=== PATIENT | female | born 1995 | race Caucasian/White ===

== ENCOUNTER 2016-11-19 00:56 | Emergency (ER) | payer BC ==
[~2016-11-19] VITALS: Ht 172.7 cm; Wt 59.0 kg
[~2016-11-19 00:56] MED LIST: NKM
--- NOTE | 2016-11-19 01:58 | Emergency Room Report ---
History of Present Illness General Chief Complaint: Alcohol Intoxication Source: Friend, EMS Present Illness HPI This is a 21-year-old female brought in by EMS for alcohol intoxication. She was at a democr[employer] O. said by one of the sorority at [facility]. She was drinking heavily tonight. She was vomiting and acting aggressively. She then became hard to arouse. EMS called. There is no trauma. Unable to get history from patient because of her intoxication. 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 Allergies: Coded Allergies: No Known Allergies (Unverified , 11/19/16) Patient History Past Medical History: none Past Surgical History: none Pertinent Family History: none Social History: Reports: alcohol use Last Menstrual Period: unk Now: No Immunizations: other Reviewed Nursing Documentation: PMH: Agreed, PSxH: Agreed Nursing Documentation-PMH Past Medical History: No Stated History Review of Systems Eye: Denies: blurred vision, eye pain ENT: Denies: ear pain, nose congestion, throat swelling Respiratory: Denies: cough, shortness of breath Cardiovascular: Denies: chest pain, palpitations Gastrointestinal: Denies: abdominal pain, diarrhea, nausea, vomiting Musculoskeletal: Denies: back pain, joint pain Skin: Denies: rash Neurological: Denies: headache, numbness Endocrine: Denies: increased thirst, increased urine Hematologic/Lymphatic: Denies: easy bruising All Other Systems: limited - Limited because of intoxication. Physical Exam Vital Signs Date Time Temp Pulse Resp B/P Pulse Ox O2 Delivery O2 Flow Rate FiO2 11/19/16 00:52 98.4 86 16 132/78 100 Room Air vitals normal Sp02 EP Interpretation: reviewed, normal General Appearance: well appearing, no apparent distress, other - Very intoxicated Head: normocephalic, atraumatic Eyes: bilateral eye EOMI, bilateral eye PERRL ENT: normal pharynx Neck: full range of motion, supple, no meningismus Respiratory: chest non-tender, lungs clear, normal breath sounds Cardiovascular #1: regular rate, rhythm, no murmur Gastrointestinal: normal bowel sounds, non tender, no mass, no organomegaly, no bruit, non-distended Musculoskeletal: back normal, normal range of motion Neurologic: grossly normal Skin: warm/dry Medical Decision Making Diagnostic Impression: Primary Impression: Acute alcoholic intoxication Qualified Codes: F10.120 - Alcohol abuse with intoxication, uncomplicated ER Course Patient with alcohol intoxication. No trauma to warrant CT scan or x-rays. I with the patient sleep of her alcohol. When she is more clinically sober, we' ll discharge home. Last Vital Signs Date Time Temp Pulse Resp B/P Pulse Ox O2 Delivery O2 Flow Rate FiO2 11/19/16 00:52 98.4 86 16 132/78 100 Room Air Status: improved Disposition: HOME, SELF-CARE Condition: Stable Referrals: NOT CHOSEN IPA/MD,REFERRING (PCP) Patient Instructions: Alcohol Intoxication, [id number] Additional Instructions: abstain from drinking to excess. Followup with your Dr. in 7 days. Return if worse. SURESH MARTIN M.D. Nov 19, 2016 01:58
[2016-11-19 02:10] VITALS: BP 124/78
[2016-11-19 05:30] VITALS: BP 116/83
[2016-11-19 06:55] VITALS: BP 118/76
[2016-11-19 07:02] VITALS: BP 118/76
== END 2016-11-19 06:58 | disposition home or self-care (01) ==
LOC: EDBD 00:56 → EMR 01:54
DX: F10.120 Alcohol abuse with intoxication, uncomplicated (principal)
CPT/HCPCS: 99284